=== PATIENT | male | born 1945 | race Caucasian/White ===

== ENCOUNTER → 2017-08-27 | Outpatient (CLI) | payer OTHER | LOC: CIMAGING 12:39 | PROVIDERS: ATTEND Internal Medicine | DX: R05 Cough (principal) | CPT/HCPCS: 71020-PO ==

== ENCOUNTER → 2017-09-02 | Outpatient (CLI) | payer OTHER | LOC: CIMAGING 13:55 | PROVIDERS: ATTEND Internal Medicine | DX: R04.2 Hemoptysis (principal); J98.09 Other diseases of bronchus, not elsewhere classified; Z87.891 Personal history of nicotine dependence; Z87.09 Personal history of other diseases of the respiratory system | CPT/HCPCS: 71250-PO ==

== ENCOUNTER → 2017-12-23 | Outpatient (CLI) | payer OTHER | LOC: CIMAGING 16:52 | PROVIDERS: ATTEND Internal Medicine | DX: M25.862 Other specified joint disorders, left knee (principal) | CPT/HCPCS: 73565-PO ==

== ENCOUNTER 2018-02-02 06:58 | Day surgery (SDC) | payer OTHER ==
[2018-02-02] MEDS ORDERED: FAMOTIDINE 20 MG TAB PO ONE (07:03)
[2018-02-02] MEDS ORDERED: MIDAZOLAM 2 MG/2 ML VIAL IVP ONE (07:03)
[2018-02-02] MEDS ORDERED: DIAZEPAM 5 MG TAB PO ONE (07:03)
[2018-02-02] MEDS ORDERED: diphenhydrAMINE 25 MG CAP PO ONE (07:03)
[2018-02-02] MEDS ORDERED: ASPIRIN EC 325 MG TAB PO ONE (07:03)
[2018-02-02] MEDS ORDERED: BENZOCAINE UNIT DOSE SPRAY HURRICAINE MM ONE (07:03)
[2018-02-02] MEDS ORDERED: NS 1,000 ML IV ONE (07:03)
[2018-02-02] MEDS ORDERED: fentaNYL 100 MCG/2 ML INJ IVP ONE (07:03)
--- NOTE | 2018-02-02 07:21 | CPEKG ---
Heart Rate: 63 RR Interval: 952 P-R Interval: 276 QRSD Interval: 98 QT Interval: 408 QTC Interval: 418 P Blanchard: 64 QRS Blanchard: 53 T Wave Blanchard: 55 EKG Severity - ABNORMAL ECG - EKG Impression: SINUS RHYTHM EKG Impression: FIRST DEGREE AV BLOCK Electronically Signed By: Kimi Santana 02-Feb-2018 16:34:17
[2018-02-02 07:43] LABS: PLATELET COUNT 162 10^3/uL (150-400)
[2018-02-02 07:52] LABS: INR 1.08 (0.83-1.16); PROTIME(PATIENT) 14.2 SEC (12.0-15.0)
[2018-02-02] MEDS ORDERED: ATROPINE SULFATE 1 MG/10 ML SYR ONE (08:44)
[2018-02-02] MEDS ORDERED: VERAPAMIL 5 MG/2 ML VIAL ONE (09:40)
[2018-02-02] MEDS ORDERED: LIDOCAINE 1% 300 MG/30 ML SDV ONE (09:40)
[2018-02-02] MEDS ORDERED: MIDAZOLAM 2 MG/2 ML VIAL ONE (09:40)
[2018-02-02] MEDS ORDERED: fentaNYL 100 MCG/2 ML INJ ONE (09:40)
[2018-02-02] MEDS ORDERED: HEPARIN 10,000 UNIT/10 ML MDV (1,000 UNIT/ML) ONE (09:41)
[2018-02-02] MEDS ORDERED: IOPAMIDOL (ISOVUE-370) 150 ML BTL IV ONE (09:41)
--- NOTE | 2018-02-02 09:44 | PDHPUP ---
History & Physical Update H&P update statement: This history and physical update is based on an assessment of the patient which was completed after admission or registration (within 24 hours), but prior to the surgery/procedure. H&P update: H&P reviewed & patient examined, no change in patient's condition since H&P completed
--- NOTE | 2018-02-02 09:47 | PDANEPAE ---
ANE History of Present Illness NASRIN ANE Past Medical History - Cardiovascular History Hx CHF / Valvular Disease: Yes - Pulmonary History Hx COPD: Yes Hx Asthma/Reactive Airway Disease: Yes Hx Sleep Apnea: No Pulmonary History Comment: chronic bronchitis - Endocrine History Hx Diabetes: No Hypothyroid: Yes ANE Review of Systems Review of Systems: SOB - Exercise capacity METS (RN): 4 METS ANE Patient History - Allergies Allergies/Adverse Reactions: No Known Allergies Allergy (Unverified 09/12/15 11:07) - Home Medications Home medications: home medication list seen and reviewed Home Medications: Levothyroxine [Synthroid 75 mcg (*)] 75 mcg PO DAILY06 09/12/15 [Last Taken 12/17] Atorvastatin Calcium [Lipitor 10 mg (*)] 10 mg PO HS 02/02/18 [Last Taken ] Fluticasone Nasal [Flonase Nasal [place] (RX)] 2 sprays NASAL DAILY PRN 02/02/18 [ Last Taken Unknown] Ipratropium/Albuterol [Duoneb (*)] 3 ml IH QID 02/02/18 [Last Taken 02/02/18] Omeprazole 20 mg PO DAILY PRN 02/02/18 [Last Taken Unknown] - Smoking Hx Smoking Status: Former smoker ANE Labs/Vital Signs - Labs Result Diagrams: 02/02/18 07:30 02/02/18 07:30 - Vital Signs Height: 167.64 cm Weight: 77.111 kg ANE Anesthesia Plan Total IV Anesthesia: Yes
--- NOTE | 2018-02-02 09:48 | POSTANESTH ---
Post Anesthetic Evaluation Cardiovascular Status: Similar to Pre-Op Cond Respiratory Status: Similar to Pre-op Cond. Level of Consciousness/Mental Status: Can Participate in Eval, Mildly Sleepy, Arousable Pain Control: Adequate, Prn Tx Ordered Nausea/Vomiting Control: Adequate, Prn Tx Ordered Complications Possibly Related to Anesthesia: None Noted
[2018-02-02] MEDS ORDERED: PROPOFOL 200 MG/20 ML VIAL ONE ×2 (09:49→10:19)
--- NOTE | 2018-02-02 10:16 | PDPROPOC ---
Sedation Plan of Care Sedation Plan of Care: vital signs stable, mental status noted, patient educated of risks, benefits, alternatives, patient can tolerate sedation ASA Classification: ASA 2 Planned drugs: fentanyl, midazolam Mallampati Score: Class 1 Mallampati Reference Image: Patient passed 3-3-2 rule?: Yes
[2018-02-02] MEDS ORDERED: DEXAMETHASONE 4 MG/ML VIAL IVP PRN (10:27)
[2018-02-02] MEDS ORDERED: fentaNYL 100 MCG/2 ML INJ IVP PRN (10:27)
[2018-02-02] MEDS ORDERED: NALOXONE HCL 0.4 MG/ML INJ IVP PRN (10:27)
[2018-02-02] MEDS ORDERED: ONDANSETRON 4 MG/2 ML VIAL IVP PRN (10:27)
--- NOTE | 2018-02-02 11:04 | PDDXCAT ---
Diagnostic Cath Note - . Date: 02/02/18 Sld Inclusion Teacher: Giorgio Indication: other (Severe mitral regurgitation, preoperative for planned mitral valve repair.) - Procedure Access: right groin Procedure: left heart catheterization, coronary angiography, left ventriculogram , right heart catheterization - Materials Left Heart Cath size: 5F Left Heart Cath materials: JL4.0, JR4.0, pigtail Right Heart Cath size: 7F Right Heart Cath materials: PWP catheter - Findings-Left Heart Catheterization LM: Large caliber vessel. Bifurcates into the left anterior descending and circumflex. Angiographically free of disease. LAD: Large caliber transapical vessel with 2 small diagonal branches. Minimal luminal irregularities with no obstructions. LCX: Dominant. Moderate caliber. 2 posterolateral branches, single obtuse marginal and the PDA were identified. Minimal luminal irregularities with no obstructive lesions. RCA: Small caliber and non dominant. Mid occluded. EDP: 20 mmHg. LVEF: 60-65%. Wall motion: Normal wall motion. - Findings-Right Heart Catheterization RA: 11 mmHg. RV: 45/7/12 mmHg. PA: 37/22/29 mmHg. PAOP: 20 mmHg. No evidence of large V-waves. AO: 147/66/98 mmHg. CO: 5.18 liters/minute. CI: 2.77 liters/minute per meter squared. Complications: None. Estimated blood loss: <50ml Closure method: Angioseal Assessment: 1. CAD characterized by a mid occluded non dominant right coronary artery and luminal irregularities in the remainder of the coronary tree. 2. Preserved left ventricular systolic function with an ejection fraction of 60-65 % with normal wall motion. 3. Evidence of 3+ mitral regurgitation by left ventriculography. 4. Elevated end-diastolic pressure and pulmonary capillary wedge pressure with mildly elevated pulmonary pressures. 5. Known posterior leaflet mitral valve prolapse with evidence of severe mitral regurgitation by echocardiography and moderate aortic regurgitation. Plan: The patient will be considered for mitral valve repair and aortic valve replacement. Intervention: None.
[2018-02-02] MEDS ORDERED: ATROPINE SULFATE 1 MG/10 ML SYR IVP PRN (11:08)
[2018-02-02] MEDS ORDERED: NITROGLYCERIN 0.4 MG BTL SL PRN (11:08)
--- NOTE | 2018-02-02 14:28 | GCON ---
[f rep st] CONSULTATION DATE OF CONSULTATION: 02/02/2018 Patient is seen at the request of Dr. Carrillo with the patient's permission. IMPRESSION: 1. 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 2. Arteriosclerotic heart disease with chronically occluded right coronary artery. 3. Mild to moderate aortic insufficiency. RECOMMENDATIONS: This gentleman should undergo mitral valve repair with a 95% certainty of repair an d 5% risk of replacement. Risks and alternatives were reviewed at length with the patient. The expe cted outcomes, potential for valve failure down the road, and associated complications of that surger y including bleeding, infection, stroke, heart attack, and were reviewed. Surgical risk is les s than 2%. His coronary artery is small and nondominant and chronically occluded. Therefore, should not be grafted. 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 MEDICATIONS: Atorvastatin, fluticasone 50 mcg, ipratropium/albuterol, levothyroxine, omeprazole, and ProAir. ALLERGIES: He has no known allergies. FAMILY HISTORY: Noncontributory. REVIEW OF SYSTEMS: Unremarkable except for chief complaint. SOCIAL HISTORY: He has a 40 pack-year history of cigarette abuse, stopping in 1989. 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 REVIEW OF SYSTEMS: Except for chief complaint of shortness of breath on exertion, he denies complain ts. DIAGNOSTICS: Echo, as noted, reveals a PA pressure of 32 with moderate to severe, more likely severe , mitral regurgitation, anteriorly directed. Ejection fraction was preserved at 66. He has mild TR and moderate AI. Cath as stated. PHYSICAL EXAMINATION: GENERAL: This is a well-developed gentleman, no apparent distress. HEART: R egular rate and rhythm with murmur of mitral regurgitation. LUNGS: Clear. ABDOMEN: Soft, nontende r. Bowel sounds are active. RECTAL AND GENITAL: Deferred. NEUROLOGIC: He is grossly intact. Anh r and sensory are intact to the lower extremities. He does have some muscle wasting in both hands wh ich he attributes to his cervical disk surgery which was preceded by neuropathy and muscle loss. Please see cath report for details. /[id number]/MODL
[2018-02-02 16:26] VITALS: BP 146/65
--- NOTE | 2018-02-02 16:33 | ECHO ---
[email or web address] [address] [address] Main: [phone] Fax: Transesophageal Echocardiography Name: FRANCESCA DSOUZA MR#: [id number] Study Date: 02/02/2018 Study Time: 08:53 AM Date of : 1945 Age: 73 year(s) Height: 167.6 cm (66 in.) Weight: 77.11 kg (170 lb.) BSA: 1.87 m2 Gender: Male Examination: NASRIN Indication: Eval mitral valve Image Quality: Contrast: Requested by: Ketan Mccoy Heart Rate: Rhythm: BP: 131 mmHg/59 mmHg Procedure Staff Design Painter: Vianney Worthy RDCS Reading Physician: Jose R Alvares MD Requesting Provider: Jose R Alvares MD NASRIN Exam Details Conclusions: The patient was in sinus rhythm at the time of the study. Normal left ventricular size and systolic function. LVEF estimated at 55-60% with normal wall motion. Trileaflet aortic valve with mild sclerosis. Moderate central aortic insufficiency. Myxomatous appearing mitral valve. There appears to be prolapse of the P1 segment. This is associated with severe, eccentric mitral regurgitation. Normal-appearing tricuspid valve. Mild tricuspid regurgitation. The pulmonic valve was not visualized. Intact interatrial septum on color flow Doppler. Agitated saline contrast study was not performed. No evidence of pericardial effusion. Measurements: Chambers Valvular Assessment AV/MV Valvular Assessment TV/PV Normal Normal Normal Name Value Range Name Value Range Name Value Range TR Vmax: 3.34 mm/s ( - ) TR PGmax: 45 mmHg ( - ) syst. PAP: 50 mmHg ( - ) Additional Measurements: Valvular Assessment TV/PV Name Value CVP (est.): 5 mmHg Patient: FRANCESCA DSOUZA Study Date: 02/02/2018 Page 1 of 2 08:53 AM Findings: Left Ventricle: Normal global systolic LV function. Mitral Valve: There is posterior mitral leaflet prolapse. There is a severe eccentric jet of mitral regurgitation.. Aortic Valve: The aortic valve is tri-leaflet. Moderate aortic valve regurgitation is present. Tricuspid Valve: Mild tricuspid regurgitation is present. The pulmonary artery pressure is mildly increased. RVSP is 50mmHG.. Exam Comments: Technically difficult NASRIN with pt coughing and amount of secretions.. l1n (No Signature Object) Patient: FRANCESCA DSOUZA Study Date: 02/02/2018 Page 2 of 2 08:53 AM [id number]
== END 2018-02-02 16:28 | disposition home or self-care (01) ==
LOC: FCATH 06:58
PROVIDERS: ATTEND Internal Medicine Cardiovascular Disease
PROC: B2161ZZ Fluoroscopy of Right and Left Heart using Low Osmolar Contrast (ICD-10-PCS; principal; 2018-02-02)
PROC: 4A023N8 Measurement of Cardiac Sampling and Pressure, Bilateral, Percutaneous Approach (ICD-10-PCS; principal; 2018-02-02)
PROC: B2111ZZ Fluoroscopy of Multiple Coronary Arteries using Low Osmolar Contrast (ICD-10-PCS; principal; 2018-02-02)
DX: I25.10 Atherosclerotic heart disease of native coronary artery without angina pectoris (principal); I34.0 Nonrheumatic mitral (valve) insufficiency; E03.9 Hypothyroidism, unspecified; E78.5 Hyperlipidemia, unspecified
CPT/HCPCS: C1760; J0461; J1644; J2250; J2704; J3010; Q9967

== ENCOUNTER 2018-02-25 06:12 | Inpatient (IN) | payer OTHER ==
[~2018-02-25 06:12] MED LIST: AMINOCAPROIC ACID 5 GM/20 ML VIAL IV ONE; INSULIN REGULAR HUMAN 100 UNIT in NS 100 ML IV ONE; MANNITOL 25% 12.5 GM/50 ML VIAL IVP ONE; NOREPINEPHRINE BITARTRATE 16 MG in NS 250 ML IV ONE; PHENYLEPHRINE HCL 50 MG in NS 250 ML IV ONE; SODIUM BICARBONATE 20 MEQ, LIDOCAINE 1% 10 ML in NORMOSOL-R 1,000 ML MISC ONE
[2018-02-25] MEDS ORDERED: niCARdipine/NACL 200 ML IV ONE (06:37)
[2018-02-25] MEDS ORDERED: MUPIROCIN 2% 22 GM OINT NS ONE (06:37)
[2018-02-25] MEDS ORDERED: ceFAZolin 2 GM/DEXTROSE 100 ML IV ONE (06:37)
[2018-02-25] MEDS ORDERED: CITRATE DEXTROSE SOLN 500 ML BAG MISC ONE (06:37)
[2018-02-25] MEDS ORDERED: LR 1,000 ML IV ONE (06:40)
[2018-02-25] MEDS ORDERED: CALCIUM CHLORIDE 1 GM/10 ML INJ ONE (08:37)
[2018-02-25] MEDS ORDERED: ALBUMIN 5% 250 ML BOTTLE IV ONE ×2 (08:37→13:42)
[2018-02-25] MEDS ORDERED: PROTAMINE SULFATE 50 MG/5 ML VIAL IVP ONE (08:37)
[2018-02-25] MEDS ORDERED: MILRINONE/DEXTROSE/100 ML BAG IV ONE (08:37)
[2018-02-25] MEDS ORDERED: LIDOCAINE 2% 100 MG/5 ML SYR ONE (08:38)
[2018-02-25] MEDS ORDERED: NA BICARBONATE 50 MEQ/50 ML VIAL ONE (08:38)
[2018-02-25] MEDS ORDERED: niCARdipine/NACL/200 ML BAG IV ONE (08:39)
[2018-02-25] MEDS ORDERED: CITRATE DEXTROSE SOLN 500 ML BAG ONE (08:39)
[2018-02-25] MEDS ORDERED: HEPARIN 10,000 UNIT/10 ML MDV (1,000 UNIT/ML) ONE (08:39)
[2018-02-25] MEDS ORDERED: DOPamine/DEXTROSE 400 MG/250 ML BAG IV ONE (08:39)
[2018-02-25] MEDS ORDERED: ADENOSINE 6 MG/2 ML VIAL ONE (08:40)
[2018-02-25] MEDS ORDERED: MAGNESIUM SULFATE 1 GM/2 ML VIAL ONE (08:40)
[2018-02-25] MEDS ORDERED: ceFAZolin 1 GM VIAL ONE (08:40)
[2018-02-25] MEDS ORDERED: AMIODARONE HCL 150 MG/3 ML VIAL ONE (08:40)
[2018-02-25] MEDS ORDERED: NITROGLYCERIN/D5W 50 MG/250 ML BOTTLE IV ONE (08:40)
[2018-02-25] MEDS ORDERED: methylPREDNISolone SOD SUCC 1 GM/8 ML VIAL ONE (08:40)
[2018-02-25] MEDS ORDERED: MUPIROCIN 2% 22 GM OINT ONE (08:46)
[2018-02-25] MEDS ORDERED: MIDAZOLAM 2 MG/2 ML VIAL IVP ONE (11:13)
--- NOTE | 2018-02-25 11:13 | PDANEPAE ---
ANE History of Present Illness here for MVR ANE Past Medical History - Cardiovascular History Hx Hypertension: Yes Hx Arrhythmias: No Hx Chest Pain: No Hx Coronary Artery / Peripheral Vascular Disease: No Hx CHF / Valvular Disease: Yes Hx Palpitations: No Cardiovascular History Comment: ELEVATED LIPIDS - Pulmonary History Hx COPD: Yes Hx Asthma/Reactive Airway Disease: No Hx Recent Upper Respiratory Infection: No Hx Oxygen in Use at Home: No Hx Sleep Apnea: No Sleep Apnea Screening Result - Last Documented: Positive Pulmonary History Comment: 08/18 bronchitis. PNEUMONIA 2012. HAS HAD INHALER ONLY PAST MONTH - Neurologic History Hx Cerebrovascular Accident: No Hx Seizures: Yes Hx Dementia: No Neurologic History Comment: POST HEAD INJURY 1967 - Endocrine History Hx Diabetes: No Endocrine History Comment: HYPOTHYROID - Renal History Hx Renal Disorders: No - Liver History Hx Hepatic Disorders: No - Neurological & Psychiatric Hx Hx Neurological and Psychiatric Disorders: No - Cancer History Hx Cancer: No - Congenital Disorder History Hx Congenital Disorders: No - GI History Hx Gastrointestinal Disorders: Yes Gastrointestinal History Comment: OTC USED WHEN EATS SPICEY FOODS ABOUT EVERY 4 MONTHS - Other Health History Other Health History: BAD LEFT KNEE - Chronic Pain History Chronic Pain: Yes (LT KNEE) - Surgical History Prior Surgeries: JAKOB CATARACTS. HEAD INJURY SPINAL FLUID LEAKING. CERVICAL FUSION. LT KNEE SCOPE X2 ANE Review of Systems Review of systems is: negative Review of Systems: - Exercise capacity Exercise capacity: <4 METS METS (RN): 3 METS ANE Patient History - Allergies Allergies/Adverse Reactions: No Known Allergies Allergy (Unverified 09/12/15 11:07) - Home Medications Home medications: home medication list seen and reviewed Home Medications: Levothyroxine [Synthroid 75 mcg (*)] 75 mcg PO DAILY06 09/12/15 [Last Taken 12/17] Atorvastatin Calcium [Lipitor 10 mg (*)] 10 mg PO HS 02/02/18 [Last Taken ] Albuterol [Ventolin Hfa Inhaler] 2 puffs IH Q4 PRN 02/16/18 [Last Taken Unknown] - NPO status NPO Since - Liquids (Date): 02/25/18 NPO Since - Liquids (Time): 04:20 NPO Since - Solids (Date): 02/24/18 NPO Since - Solids (Time): 19:00 - Smoking Hx Smoking Status: Former smoker - Family Anes Hx Family Hx Anesthesia Complications: NEG ANE Labs/Vital Signs - Vital Signs Blood Pressure: 145/63 Heart Rate: 62 Respiratory Rate: 18 O2 Sat (%): 96 Height: 168.91 cm Weight: 77.111 kg ANE Physical Exam - Airway Neck exam: FROM Mallampati Score: Class 1 - Pulmonary Pulmonary: no respiratory distress - Cardiovascular Cardiovascular: regular rate and rhythym - ASA Status ASA Status: III ANE Anesthesia Plan Anesthesia Plan: general endotracheal anesthesia Lines/Monitors: arterial line, central line, NASRIN
[2018-02-25] MEDS ORDERED: MIDAZOLAM 2 MG/2 ML VIAL ONE (11:19)
[2018-02-25] MEDS ORDERED: fentaNYL 250 MCG/5 ML INJ ONE ×2 (11:21→12:02)
[2018-02-25] MEDS ORDERED: PROPOFOL/EMULSION 500 MG/50 ML BOTTLE IV ONE (11:21)
[2018-02-25] MEDS ORDERED: ROCURONIUM 100 MG/10 ML VIAL ONE (11:21)
[2018-02-25] MEDS ORDERED: PHENYLEPHRINE HCL 100 MCG/ML SYR ONE (11:25)
[2018-02-25] MEDS ORDERED: ePHEDrine SULFATE 25 MG/5 ML SYR ONE (11:25)
[2018-02-25] MEDS ORDERED: NITROGLYCERIN 50 MG/10 ML SDV IV ONE (12:01)
[2018-02-25] MEDS ORDERED: MINERAL OIL 10 ML VIAL ONE (14:32)
[2018-02-25] MEDS ORDERED: POTASSIUM Cl (KCl) 50 ML IV PRN (15:29)
[2018-02-25] MEDS ORDERED: D50W 25 GM/50 ML SYR IVP PRN (15:29)
[2018-02-25] MEDS ORDERED: CEPACOL LOZENGE PO PRN (15:29)
[2018-02-25] MEDS ORDERED: BISACODYL 10 MG SUPP PR PRN (15:29)
[2018-02-25] MEDS ORDERED: MAGNESIUM HYDROXIDE 30 ML UDCUP PO PRN (15:29)
[2018-02-25] MEDS ORDERED: ONDANSETRON DISINTEGRATING 4 MG TAB PO PRN (15:29)
[2018-02-25] MEDS ORDERED: MEPERIDINE 25 MG/0.5 ML AMP IVP PRN (15:29)
[2018-02-25] MEDS ORDERED: ACETAMINOPHEN 650 MG SUPP PR PRN (15:29)
[2018-02-25] MEDS ORDERED: POLYETHYLENE GLYCOL 3350 17 GM PKT PO PRN (15:29)
[2018-02-25] MEDS ORDERED: METOCLOPRAMIDE 10 MG/2 ML VIAL IVP PRN (15:29)
[2018-02-25] MEDS ORDERED: LACTULOSE 20 GM/30 ML UDCUP PO PRN (15:29)
[2018-02-25] MEDS ORDERED: ONDANSETRON 4 MG/2 ML VIAL IVP PRN (15:29)
[2018-02-25] MEDS ORDERED: SODIUM CL NASAL 45 ML BTL EACHNARE PRN (15:29)
[2018-02-25] MEDS ORDERED: PANTOPRAZOLE SODIUM 40 MG VIAL IVP ONE (15:29)
[2018-02-25] MEDS ORDERED: NS 1,000 ML IV SCH (15:30)
[2018-02-25] MEDS ORDERED: INSULIN REGULAR HUMAN 100 UNIT in NS 100 ML IV SCH (15:30)
[2018-02-25] MEDS ORDERED: niCARdipine/NACL 200 ML IV SCH (15:30)
[2018-02-25] MEDS: ALBUMIN 5% 250 ML IV PRN ×3 (16:05→21:59)
--- NOTE | 2018-02-25 16:13 | GOP ---
[f rep st] OPERATIVE REPORT DATE OF OPERATION: 02/25/2018 SURGEON: Stefan Cervantes DO FRAME REPAIRER: Diaz Hsu PA-C. ANESTHESIA: Drake Alvarado MD. PREOPERATIVE DIAGNOSIS: 1. Severe mitral insufficiency. 2. Moderate aortic insufficiency. 3. Coronary artery disease. POSTOPERATIVE DIAGNOSIS: 1. Severe mitral insufficiency. 2. Moderate aortic insufficiency. 3. Coronary artery disease. PROCEDURE PERFORMED: 1. Chordal-sparing mitral valve replacement with a #29 Magna bioprosthesis. 2. Aortic valve replacement with a #23 Inspiris aortic bioprosthesis. 3. AtriClip to the left atrial appendage. FINDINGS: Patient was noted to have symptomatic aortic and mitral insufficiency. Had preserved LV f unction. He was evaluated and found to have complete occlusion of the right coronary artery with col lateral flow. No other significant obstructive disease. DESCRIPTION OF PROCEDURE: He was consented for surgery, brought to the operating room, intubated. M onitoring lines were placed. He was prepped and draped in sterile classical manner. Sternotomy was performed. The patient was heparinized. His aorta was without plaque or calcification. He was johanna ulated in the standard fashion with bicaval cannulas, retrograde and antegrade cardioplegia. Cardiop ulmonary bypass was begun. We then placed a 35 mm AtriClip across the base of the left atrial append age without difficulty. We then arrested the heart with intermittent antegrade cardioplegia, retrogr luna cardioplegia, topical hypothermia, and systemic cooling. The left atrium was opened through the right superior pulmonary vein. A Ant retractor was place d. We then spent some time evaluating the mitral valve. He actually had ruptured chordae to P3 and calcification of A3 leaflet and then P2 rupture as well with some calcification in P1. This was a s mall fibroelastic valve, rather small and with marginal tissue. For that reason, I felt a replacemen t was more appropriate in this gentleman given his age and the fact that we could do chordal sparing with good LV function. We detached the anterior leaflet, incorporated into placing a 29 mm Magna bio prosthesis with interrupted 2-0 Tycron pledgeted mattress sutures. We then proceeded with exposing t he aortic valve. It was a trileaflet valve without calcification. There was thickening and retracti on of the central portions of the right coronary and left coronary leaflets. I felt that regurgitati on was likely more significant than he would tolerate. With that reason, it was excised, and a 23 mm Inspiris valve was placed in a supra-annular position with interrupted 3-0 Tycron pledgeted mattress sutures. Aortotomy was closed in standard fashion. The cross-clamp was removed with suction on the ascending aortic vent in Trendelenburg. When no further air was identified, he was easily weaned fro m bypass. The heparin was reversed with protamine. The cannula was removed and oversewn. 4 pacing wires, 2 mediastinal drains were placed. No pleural drains were placed. Chest tubes were reapproxim ated in standard fashion. The patient was returned to ICU in stable condition. /[id number]/MODL
[2018-02-25] MEDS ORDERED: NOREPINEPHRINE BITARTRATE 16 MG in NS 250 ML IV SCH (17:30)
[2018-02-25] MEDS: fentaNYL 100 MCG/2 ML INJ IVP PRN ×3 (17:55→20:27)
[2018-02-25] MEDS ORDERED: ALBUMIN 5% 250 ML IV ONE (18:00)
[2018-02-25] MEDS: KETOROLAC 15 MG/1 ML SDV IVP PRN (18:35)
[2018-02-25] MEDS: MUPIROCIN 2% 22 GM OINT NS SCH (21:04)
[2018-02-25] MEDS: SENNOSIDES/DOCUSATE SODIUM TAB PO SCH (21:04)
[2018-02-25] MEDS: HYDROCODONE/APAP 5/325 TAB PO PRN (21:56)
[2018-02-25] MEDS: ceFAZolin 2 GM/DEXTROSE 100 ML IV SCH (21:58)
[2018-02-26] MEDS: KETOROLAC 15 MG/1 ML SDV IVP PRN (01:14)
[2018-02-26 05:22] LABS: PLATELET COUNT 66 10^3/uL (150-400)
[2018-02-26] MEDS: LEVOTHYROXINE 75 MCG TAB PO SCH (05:28)
[2018-02-26] MEDS: HYDROCODONE/APAP 5/325 TAB PO PRN ×2 (05:28→09:02)
[2018-02-26] MEDS: ceFAZolin 2 GM/DEXTROSE 100 ML IV SCH ×3 (05:29→22:32)
[2018-02-26 05:44] LABS: INR 1.42 (0.83-1.16); PROTIME(PATIENT) 17.5 SEC (12.0-15.0)
--- NOTE | 2018-02-26 06:36 | SOAPPROG ---
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 Not amenable to repair. Replaced with tissue valve. Antithrombotic prophylaxis with Coumadin x 3 mo, target INR 2-3. Moderate AI - Replaced with tissue valve. Antithrombotic prophylaxis as per MV. LVDD - preop LVEDP 20. IVF, low dose levo, and overdrive Apacing overnoc for optimized hemodynamics. Renal fx remains stable. Care with preload. CAD w preserved LV systolic fx - GLAZE GRINDER of nondominant RCA. Secondary prevention with ASA, BB and statin when appropriate. Acute expected blood loss anemia with thrombocytopenia and mild coagulopathy - Stable. No transfusions required. No evidence active bleeding. Care with VTE prophylaxis while plts depressed. Plan: Routine POD#1 orders re drains, orals and mobility. Reduce Apacing to backup of 60. Transfuse 1u PRBC. NS bolus prn CVP persistently < 12. Wean levo to MAP > 65. Possible tx to PCU later today. 02/26/18 06:31 Subjective: Tired and sore Objective: Vital Signs Temp Pulse Resp BP Pulse Ox 37.1 C 80 13 118/52 L 99 02/26/18 04:00 02/26/18 05:00 02/26/18 05:00 02/26/18 05:00 02/26/18 05:00 Laboratory Results 02/26/18 05:10 02/26/18 05:10 02/25/18 02/26/18 02/27/18 05:59 05:59 05:59 Intake Total 3710 Output Total 1518 Balance 2192 PT 17.5 SEC (12.0-15.0) H 02/26/18 05:10 INR 1.42 (0.83-1.16) H 02/26/18 05:10 IVF at 100 ml/h, Levo at 2.5 mcg for MAP > 65. Overdrive atrial pacing for SBP boost. Underlying rhythm sinus 70s. Min suppl O2 req. 3.7 kg positive fluid balance. Adequate UOP. Mod CTOP, quality thinning. CXR -> No PTX, no pulm vasc congestion, tiny rt pl eff Labs as expected. INR sl elev. No further drop in plt count. Physical Exam - Physical Exam General Appearance: alert, no apparent distress Respiratory: crackles (bases), other (blakes x 2 y-d to pleurovac, serosang drainage, no air leak) Cardiac/Chest: regular rate, rhythm, other (Sternotomy CDI. A&V wires intact) Abdomen: non-tender, soft Skin: warm/dry Extremities: other (no visible dependent edema) ICD10 Worksheet Patient Problems: Problems Problem Status Onset Acute blood loss as cause of postoperative anemia Acute Mitral and aortic valve regurgitation Acute S/P aortic valve and mitral valve replacement Acute
[2018-02-26] MEDS: HEPARIN 5,000 UNIT/0.5 ML INJ SC SCH ×3 (06:51→19:36)
[2018-02-26] MEDS: SENNOSIDES/DOCUSATE SODIUM TAB PO SCH ×2 (09:01→22:34)
[2018-02-26] MEDS: MUPIROCIN 2% 22 GM OINT NS SCH ×2 (09:01→22:34)
[2018-02-26] MEDS: PANTOPRAZOLE SODIUM 40 MG TAB PO SCH (09:02)
[2018-02-26] MEDS: ASPIRIN 81 MG CHEWABLE TAB PO SCH (09:02)
--- NOTE | 2018-02-26 11:23 | ASMTCMCOM ---
CM Note CM Note Notes: Patient is POD #1 AVR/MVR and doing well. Initial PT eval recommends SNF. I spoke with patient and he is amenable to SNF. He lives alone. He requested a referral to [facility], which I sent. Case Management will follow. Date Signed: 02/26/2018 11:23 AM Electronically Signed By:Lesly Reza RN
--- NOTE | 2018-02-26 11:42 | PDMN ---
Medical Necessity Medical necessity: IP only surgery; cpt 15759 Cardiac Valve Replacement/Repair ( MVR/AVR)
[2018-02-26] MEDS: oxyCODONE IR 5 MG TAB PO PRN ×3 (12:58→22:31)
--- NOTE | 2018-02-26 14:54 | ASMTLACE ---
TRISH Acuity / Level of Answers: Yes Care: Did the patient have an inpatient admission? Comorbidities - select Answers: Chronic pulmonary disease all that apply Congestive heart failure Opioid dependence / Chronic pain Other Notes: HTN; Hx of seizures # of Emergency department Answers: 0 visits in the last 6 months Score: 12 Date Signed: 02/26/2018 02:54 PM Electronically Signed By:Flor Nava
[2018-02-26] MEDS ORDERED: KETOROLAC 15 MG/1 ML SDV IVP SCH (18:30)
[2018-02-27] MEDS: oxyCODONE IR 5 MG TAB PO PRN ×3 (02:26→14:21)
[2018-02-27 04:45] LABS: INR 1.36 (0.83-1.16); PROTIME(PATIENT) 16.9 SEC (12.0-15.0)
[2018-02-27] MEDS: ceFAZolin 2 GM/DEXTROSE 100 ML IV SCH (05:36)
[2018-02-27] MEDS: LEVOTHYROXINE 75 MCG TAB PO SCH (05:36)
[2018-02-27] MEDS: HEPARIN 5,000 UNIT/0.5 ML INJ SC SCH (05:43)
--- NOTE | 2018-02-27 06:49 | SOAPPROG ---
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 Not amenable to repair. Replaced with tissue valve. Antithrombotic prophylaxis with Coumadin x 3 mo, target INR 2-3. Moderate AI - Replaced with tissue valve. Antithrombotic prophylaxis as per MV. LVDD - preop LVEDP 20. IVF, low dose levo, and overdrive Apacing early postop for optimized hemodynamics. Moderate volume overload well tolerated. Renal fx remains stable. Care with preload. CAD w preserved LV systolic fx - INSTALLATION COORDINATOR of nondominant RCA. Secondary prevention with ASA, BB and statin when appropriate. Acute expected blood loss anemia with thrombocytopenia and mild coagulopathy - Stable. No transfusions required. No evidence active bleeding. Care with VTE prophylaxis while plts depressed. Plan: Remove rere. Cont Apacing at 80. Cont inc activity as tolerated. Consider removal chest tubes later today. Start coumadin. 2.5 mg today. Tx to PCU. 02/27/18 06:48 Subjective: Doing ok. OOB and short walk without dizziness. Objective: Vital Signs Temp Pulse Resp BP Pulse Ox 36.5 C 80 16 115/51 L 97 02/26/18 16:00 02/27/18 06:00 02/27/18 06:00 02/27/18 06:00 02/27/18 06:00 Laboratory Results 02/27/18 04:25 02/27/18 04:25 02/26/18 02/27/18 02/28/18 05:59 05:59 05:59 Intake Total 4010 2336 Output Total 1518 855 Balance 2492 1481 PT 16.9 SEC (12.0-15.0) H 02/27/18 04:25 INR 1.36 (0.83-1.16) H 02/27/18 04:25 Off levo without drop in SBP or bump in Cr. Underlying rhythm junct/SB. Improved SBP Apaced. Borderline suppl O2 req. Positive fluid balance. +3 kg overall. CTOP approaching removal criteria. Platelet count down slightly. Physical Exam - Physical Exam General Appearance: alert, no apparent distress Respiratory: crackles (bases), other (blakes x 2 to bulb suction, serosang drainage) Cardiac/Chest: regular rate, rhythm, other (Sternotomy CDI. A&V wires intact) Abdomen: non-tender, soft Skin: warm/dry Extremities: swelling (trace - 1+ dependent) ICD10 Worksheet Patient Problems: Problems Problem Status Onset Acute blood loss as cause of postoperative anemia Acute Mitral and aortic valve regurgitation Acute S/P aortic valve and mitral valve replacement Acute
[2018-02-27] MEDS: SENNOSIDES/DOCUSATE SODIUM TAB PO SCH ×2 (08:19→21:14)
[2018-02-27] MEDS: PANTOPRAZOLE SODIUM 40 MG TAB PO SCH (08:20)
[2018-02-27] MEDS: ASPIRIN 81 MG CHEWABLE TAB PO SCH (08:20)
[2018-02-27] MEDS: MUPIROCIN 2% 22 GM OINT NS SCH (08:25)
[2018-02-27] MEDS ORDERED: FUROSEMIDE 20 MG/2 ML VIAL IVP ONE (09:00)
[2018-02-27] MEDS: traMADol 50 MG TAB PO PRN (15:00)
[2018-02-27] MEDS ORDERED: WARFARIN SODIUM 2.5 MG TAB PO ONE (16:00)
--- NOTE | 2018-02-27 16:21 | ASMTCMCOM ---
CM Note CM Note Notes: Chart reviewed. Patient transferred from ICU s/p MVR and AVR. Per PT initial evaluation recommending SNF. Still in early postoperative period. CM to follow. NTBD. Plan: TBD Date Signed: 02/27/2018 04:21 PM Electronically Signed By:Stephanie Salinas RN
[2018-02-27] MEDS: ACETAMINOPHEN 325 MG TAB PO PRN (21:14)
[2018-02-28] MEDS: LEVOTHYROXINE 75 MCG TAB PO SCH (06:14)
[2018-02-28] MEDS: ACETAMINOPHEN 325 MG TAB PO PRN ×2 (06:14→11:21)
[2018-02-28 06:48] LABS: INR 1.39 (0.83-1.16); PROTIME(PATIENT) 17.2 SEC (12.0-15.0)
[2018-02-28 10:06] LABS: PLATELET COUNT 45 10^3/uL (150-400)
[2018-02-28] MEDS: SENNOSIDES/DOCUSATE SODIUM TAB PO SCH ×2 (10:19→23:02)
[2018-02-28] MEDS: PANTOPRAZOLE SODIUM 40 MG TAB PO SCH (10:19)
[2018-02-28] MEDS: ASPIRIN 81 MG CHEWABLE TAB PO SCH (10:20)
--- NOTE | 2018-02-28 11:30 | SOAPPROG ---
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 Not amenable to repair. Replaced with tissue valve. Antithrombotic prophylaxis with Coumadin x 3 mo, target INR 2-3. Moderate AI - Replaced with tissue valve. Antithrombotic prophylaxis as per MV. LVDD - preop LVEDP 20. IVF, low dose levo, and overdrive Apacing early postop for optimized hemodynamics. Moderate volume overload well tolerated. Renal fx remains stable. 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 On ASA. Will start statin. BB when appropriate. Currently still being Apaced with underlying junctional rhythm in the 60's. Acute expected blood loss anemia with thrombocytopenia and mild coagulopathy - Worsening. Plt count 56k (66k), H&H 8.9/25.4. No transfusions required. No evidence active bleeding. Care with VTE prophylaxis while plts depressed. Urinary retention- Required straight cath this am. Hypothyroidism- No issues. On Synthroid. Plan: Cont Apacing. Will remove pleural chest tube today. Coumadin 5mg today. Echo ordered for Friday. Iron BID Check HIT Flomax initiated. Lasix 40po daily/Kdur 20mEq daily Subjective: Patient reports good pain control. Reports having hx of slow urinary stream. Objective: Vital Signs Temp Pulse Resp BP Pulse Ox 36.9 C 84 15 104/68 98 02/28/18 07:36 02/28/18 07:36 02/28/18 07:36 02/28/18 07:36 02/28/18 07:36 Laboratory Results 02/28/18 09:22 02/28/18 04:30 02/27/18 02/28/18 03/01/18 05:59 05:59 05:59 Intake Total 2336 650 250 Output Total 855 1585 Balance 1481 -935 250 PT 17.2 SEC (12.0-15.0) H 02/28/18 04:30 INR 1.39 (0.83-1.16) H 02/28/18 04:30 Physical Exam - Physical Exam General Appearance: WD/WN, alert, no apparent distress Neck: supple Respiratory: lungs clear, other (No wheezing, rhonchi, rales. ) Cardiac/Chest: regular rate, rhythm, other (No murmurs, rubs, gallops. Sternum stable. Sternotomy c/d/i. ) Abdomen: normal bowel sounds, non-tender, soft Skin: normal color, warm/dry Extremities: other (warm, 1+ lower extremity pitting edema) Neuro/Psych: alert, normal mood/affect, oriented x 3 ICD10 Worksheet Patient Problems: Problems Problem Status Onset Acute blood loss as cause of postoperative anemia Acute Mitral and aortic valve regurgitation Acute S/P aortic valve and mitral valve replacement Acute
[2018-02-28] MEDS ORDERED: BISACODYL 10 MG SUPP PR ONE (11:32)
[2018-02-28] MEDS: POTASSIUM CL 20 MEQ TAB PO SCH (12:35)
[2018-02-28] MEDS: FERROUS SULFATE 325 MG TAB PO SCH ×2 (12:35→20:39)
[2018-02-28] MEDS: TAMSULOSIN HCL 0.4 MG CAP PO SCH (12:35)
[2018-02-28] MEDS: FUROSEMIDE 40 MG TAB PO SCH (12:36)
--- NOTE | 2018-02-28 15:03 | ASMTCMCOM ---
CM Note CM Note Notes: Pt has been acceptd by [facility]. DC unknown. CM to follow. Date Signed: 02/28/2018 03:03 PM Electronically Signed By:Angi Bettencourt LCSW
[2018-02-28] MEDS ORDERED: WARFARIN SODIUM 5 MG TAB PO ONE (16:00)
[2018-02-28] MEDS: HYDROCODONE/APAP 5/325 TAB PO PRN ×2 (18:05→23:07)
[2018-02-28] MEDS: traMADol 50 MG TAB PO PRN (20:44)
[2018-03-01] MEDS: traMADol 50 MG TAB PO PRN (06:09)
[2018-03-01] MEDS: LEVOTHYROXINE 75 MCG TAB PO SCH (06:09)
[2018-03-01 06:35] LABS: INR 2.05 (0.83-1.16); PROTIME(PATIENT) 23.2 SEC (12.0-15.0)
[2018-03-01] MEDS: TAMSULOSIN HCL 0.4 MG CAP PO SCH (09:26)
[2018-03-01] MEDS: PANTOPRAZOLE SODIUM 40 MG TAB PO SCH (09:26)
[2018-03-01] MEDS: FERROUS SULFATE 325 MG TAB PO SCH ×2 (09:26→20:19)
[2018-03-01] MEDS: ASPIRIN 81 MG CHEWABLE TAB PO SCH (09:26)
[2018-03-01] MEDS: POTASSIUM CL 20 MEQ TAB PO SCH (09:26)
[2018-03-01] MEDS: SENNOSIDES/DOCUSATE SODIUM TAB PO SCH ×2 (09:26→20:19)
[2018-03-01] MEDS: ATORVASTATIN CALCIUM 10 MG TAB PO SCH (09:26)
[2018-03-01] MEDS: FUROSEMIDE 40 MG TAB PO SCH (09:27)
--- NOTE | 2018-03-01 11:46 | SOAPPROG ---
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 Not amenable to repair. Replaced with tissue valve. Antithrombotic prophylaxis with Coumadin x 3 mo, target INR 2-3. INR 2.05. Coumadin 2.5mg today. Echo ordered for tomorrow. On Lasix. Moderate AI - Replaced with tissue valve. Antithrombotic prophylaxis as per MV. LVDD - preop LVEDP 20. IVF, low dose levo, and overdrive Apacing early postop for optimized hemodynamics. Moderate volume overload well tolerated. Renal fx remains stable. CAD w preserved LV systolic fx - DIRECTOR OF DEVELOPMENT AND MARKETING of nondominant RCA. On ASA and Lipitor. BB when appropriate. Currently still being Apaced with underlying junctional rhythm in the 60's. Patient drops his BP to 80's with this junctional rhythm. May need PPM evaluation. Acute expected blood loss anemia with thrombocytopenia and mild coagulopathy - Persists with Plt count 59k (56k) and H&H 8.3/23.6. No transfusions required. No evidence active bleeding. Care with VTE prophylaxis while plts depressed. On Iron. HIT negative 02/27. Second HIT pending. Right pleural effusion- Will obtain PA/lat CXR in am to assess. Patient on 1L NC without complaints of SOB. Urinary retention- Resolving, on Flomax. Hypothyroidism- No issues. On Synthroid. Disposition- Pt accepted by [facility]. Plan: Cont Apacing Coumadin 2.5mg today Echo tomorrow Follow up HIT Subjective: Patient reports adequate pain control. "I had 4 soft bowel movement yesterday. " Denies SOB. Objective: Vital Signs Temp Pulse Resp BP Pulse Ox 36.7 C 76 12 100/48 L 93 03/01/18 11:23 03/01/18 11:23 03/01/18 11:23 03/01/18 11:23 03/01/18 11:23 Laboratory Results 03/01/18 06:00 03/01/18 06:00 02/28/18 03/01/18 03/02/18 05:59 05:59 05:59 Intake Total 650 1250 Output Total 1585 1150 Balance -935 100 PT 23.2 SEC (12.0-15.0) H 03/01/18 06:00 INR 2.05 (0.83-1.16) H 03/01/18 06:00 Physical Exam - Physical Exam General Appearance: WD/WN, alert, no apparent distress Neck: supple Respiratory: lungs clear, normal breath sounds, decreased breath sounds (right base. No wheezing, rhochi, rales. ) Cardiac/Chest: regular rate, rhythm, other (No murmurs, rubs, gallops. Sternum stable. Sternotomy c/d/i. ) Abdomen: normal bowel sounds, non-tender, soft Skin: normal color, warm/dry Extremities: other (Warm, 1+ lower extremity pitting edema. ) Neuro/Psych: alert, normal mood/affect, oriented x 3 ICD10 Worksheet Patient Problems: Problems Problem Status Onset Acute blood loss as cause of postoperative anemia Acute Mitral and aortic valve regurgitation Acute S/P aortic valve and mitral valve replacement Acute
[2018-03-01] MEDS ORDERED: WARFARIN SODIUM 2.5 MG TAB PO ONE (16:00)
[2018-03-01] MEDS ORDERED: WARFARIN SODIUM 1 MG TAB PO ONE (16:00)
[2018-03-01] MEDS: ACETAMINOPHEN 325 MG TAB PO PRN (20:18)
[2018-03-02 05:47] LABS: INR 2.44 (0.83-1.16); PROTIME(PATIENT) 26.5 SEC (12.0-15.0)
[2018-03-02] MEDS: HYDROCODONE/APAP 5/325 TAB PO PRN ×2 (06:12→20:51)
[2018-03-02] MEDS: LEVOTHYROXINE 75 MCG TAB PO SCH (06:13)
--- NOTE | 2018-03-02 07:50 | SOAPPROG ---
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 Not amenable to repair. Replaced with tissue valve. Antithrombotic prophylaxis with Coumadin x 3 mo, target INR 2-3. Moderate AI - Replaced with tissue valve. Antithrombotic prophylaxis as per MV. LVDD - preop LVEDP 20. IVF, low dose levo, and overdrive Apacing early postop for optimized hemodynamics. Moderate volume overload well tolerated. Renal fx remains stable. Care with preload. 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 Secondary prevention with ASA and statin. BB as allowed by rhythm. Postoperative junctional rhythm - Persistent. Requiring Apacing to maintain SBP > 100 over the wkend. PPM being considered, however appears to have recovered SR today with rates in 70s. Acute expected blood loss anemia with thrombocytopenia and mild coagulopathy - Stable. No transfusions required. No evidence active bleeding. HIT neg. Postoperative urinary retention - Resolving on Flomax. Plan: Reduce AAI to backup of 60. Baseline postop echo today. Coumadin 1 mg today. Cont lasix 40 mg daily. Wean O2. Dispo - SNF ([facility]) when medically stable. Possibly tomorrow if sinus rhythm held. 03/02/18 07:44 Subjective: Feels fine. No acute concerns. Objective: Vital Signs Temp Pulse Resp BP Pulse Ox 36.7 C 76 16 114/70 98 03/02/18 04:00 03/02/18 04:00 03/02/18 04:00 03/02/18 04:00 03/02/18 04:00 Laboratory Results 03/01/18 06:00 03/01/18 06:00 03/01/18 03/02/18 03/03/18 05:59 05:59 05:59 Intake Total 1250 875 Output Total 1150 1400 350 Balance 100 -525 -350 PT 26.5 SEC (12.0-15.0) H 03/02/18 05:27 INR 2.44 (0.83-1.16) H 03/02/18 05:27 Physical Exam - Physical Exam General Appearance: alert, no apparent distress Respiratory: lungs clear Cardiac/Chest: regular rate, rhythm, other (Sternum grossly stable. Sternotomy and CT sites CDI. A&V wires intact.) Abdomen: non-tender, soft Skin: warm/dry Extremities: swelling (trace pedal) ICD10 Worksheet Patient Problems: Problems Problem Status Onset Acute blood loss as cause of postoperative anemia Acute Mitral and aortic valve regurgitation Acute S/P aortic valve and mitral valve replacement Acute
[2018-03-02] MEDS: PANTOPRAZOLE SODIUM 40 MG TAB PO SCH (08:51)
[2018-03-02] MEDS: POTASSIUM CL 20 MEQ TAB PO SCH (08:51)
[2018-03-02] MEDS: ATORVASTATIN CALCIUM 10 MG TAB PO SCH (08:51)
[2018-03-02] MEDS: FUROSEMIDE 40 MG TAB PO SCH (08:51)
[2018-03-02] MEDS: FERROUS SULFATE 325 MG TAB PO SCH ×2 (08:51→20:52)
[2018-03-02] MEDS: ASPIRIN 81 MG CHEWABLE TAB PO SCH (08:51)
[2018-03-02] MEDS: TAMSULOSIN HCL 0.4 MG CAP PO SCH (08:51)
[2018-03-02] MEDS ORDERED: SENNOSIDES/DOCUSATE SODIUM TAB PO PRN (09:00)
--- NOTE | 2018-03-02 10:21 | ASMTCMCOM ---
CM Note CM Note Notes: 03/02/2018 Case Management Note Reviewed chart. Pt is post op day #5. Faxed updates to [facility]. Case Management d/c poc: Anticipating d/c to [facility] SNF rehab possibly on Friday. Case Management to follow. Date Signed: 03/02/2018 10:20 AM Electronically Signed By:Jana Le RN
--- NOTE | 2018-03-02 11:23 | ECHO ---
[email or web address] [address] Main: [phone] Fax: Transthoracic Echocardiogram Name: FRANCESCA DSOUZA MR#: [id number] Study Date: 03/02/2018 Study Time: 10:26 AM Date of : 1945 Age: 73 year(s) Height: 167.6 cm (66 in.) Weight: 83.46 kg (184 lb.) BSA: 1.93 m2 Gender: Male Examination: Echo Indication: Post op MVR #29 magna/#23 AVR/Atri clip/Eval LV function Image Quality: Contrast: Requested by: Cordelia Melo BP: 104 mmHg/69 mmHg Heart Rate: Rhythm: Indication: Post op MVR #29 magna/#23 AVR/Atri clip/Eval LV function Procedure Staff Rock Wool Insulator: Vianney Worthy [facility] Reading Physician: Pepe Thurman MD Requesting Provider: Conclusions: Normal size left ventricle. The ejection fraction is estimated to be 70-75 %. There is no significant mitral valve regurgitation. A bioprothetic mitral valve is in place. MV max PG is 11mmHG. MV mean PG is 4mmHG.. The aortic valve is a bioprosthesis. AV max PG is 15mmHG. AV mean PG is 9mmHG.. Measurements: Chambers Valvular Assessment AV/MV Valvular Assessment TV/PV Normal Normal Normal Name Value Range Name Value Range Name Value Range Ao Marah (MM): 3.2 cm (2.2 cm-3.7 AV Vmax: 1.83 m/s (1 m/s-1.7 cm) m/s) EF Range: 70-75 % AV maxP mmHg ( - ) AV meanP mmHg ( - ) MV E Vmax: 1.34 m/s ( - ) MV A Vmax: 0.94 m/s ( - ) MV E/A: 1.43 ( - ) MV maxP mmHg ( - ) MV meanP mmHg ( - ) Continued Measurements: Valvular Assessment AV/MV Name Value MV E/E' Septal: 28.00 MV E/E' Lateral: 35.30 Patient: FRANCESCA DSOUZA Study Date: 03/02/2018 Page 1 of 2 10:26 AM MV VTI: 48.20 cm Findings: Left Ventricle: Normal size left ventricle. No LV hypertrophy. Global hypercontractility of the left ventricle. The ejection fraction is estimated to be 70-75 %. Diastolic dysfunction is present. . Right Ventricle: Normal size right ventricle. Right Atrium: The right atrium is normal in size. Mitral Valve: There is no significant mitral valve regurgitation. A bioprothetic mitral valve is in place. MV max PG is 11mmHG. MV mean PG is 4mmHG.. Aortic Valve: The aortic valve is a bioprosthesis. AV max PG is 15mmHG. AV mean PG is 9mmHG.. Tricuspid Valve: The tricuspid valve is normal in appearance and function. Trivial tricuspid valve regurgitation. Pulmonic Valve: Pulmonary valve not well visualized. Aorta: The aorta is normal. Pericardium: No pericardial effusion. Exam Comments: Limited views available for visualization.. (No Signature Object) Patient: FRANCESCA DSOUZA Study Date: 03/02/2018 Page 2 of 2 10:26 AM [id number]
[2018-03-02] MEDS ORDERED: WARFARIN SODIUM 1 MG TAB PO ONE (16:00)
[2018-03-03] MEDS: LEVOTHYROXINE 75 MCG TAB PO SCH (04:57)
[2018-03-03] MEDS: HYDROCODONE/APAP 5/325 TAB PO PRN (04:57)
[2018-03-03 06:19] LABS: INR 2.02 (0.83-1.16); PROTIME(PATIENT) 22.9 SEC (12.0-15.0)
--- NOTE | 2018-03-03 07:44 | SOAPPROG ---
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 Not amenable to repair. Replaced with tissue valve. Antithrombotic prophylaxis with Coumadin x 3 mo, target INR 2-3. Moderate AI - Replaced with tissue valve. Antithrombotic prophylaxis as per MV. LVDD - preop LVEDP 20. IVF, low dose levo, and overdrive Apacing early postop for optimized hemodynamics. Moderate volume overload well tolerated. Renal fx remains stable. Care with preload. CAD w preserved LV systolic fx - [employer] T[employer] FORCE PLANNERS of nondominant RCA. Secondary prevention with ASA and statin. BB as allowed by rhythm. Postoperative junctional rhythm - Recovered. Plan to cute pacing wire this AM. Acute expected blood loss anemia with thrombocytopenia and mild coagulopathy - Stable. No transfusions required. No evidence active bleeding. HIT neg. Postoperative urinary retention - Resolving on Flomax. Subjective: Feels well. Denies pain/SOB. Objective: Vital Signs Temp Pulse Resp BP Pulse Ox 36.6 C 78 16 107/62 94 03/03/18 04:00 03/03/18 04:00 03/03/18 04:00 03/03/18 04:00 03/03/18 04:00 Laboratory Results 03/03/18 05:00 03/01/18 06:00 03/02/18 03/03/18 03/04/18 05:59 05:59 05:59 Intake Total 875 940 Output Total 1400 1725 Balance -525 -785 PT 22.9 SEC (12.0-15.0) H 03/03/18 05:00 INR 2.02 (0.83-1.16) H 03/03/18 05:00 Physical Exam - Physical Exam General Appearance: WD/WN, alert, no apparent distress EENT: No scleral icterus (R), No scleral icterus (L) Neck: normal inspection Respiratory: No respiratory distress Cardiac/Chest: regular rate, rhythm Abdomen: non-tender, soft, No distended Skin: normal color, warm/dry Extremities: No pedal edema Neuro/Psych: no motor/sensory deficits, alert, normal mood/affect, oriented x 3 ICD10 Worksheet Patient Problems: Problems Problem Status Onset Acute blood loss as cause of postoperative anemia Acute Mitral and aortic valve regurgitation Acute S/P aortic valve and mitral valve replacement Acute
[2018-03-03] MEDS: ASPIRIN 81 MG CHEWABLE TAB PO SCH (09:25)
[2018-03-03] MEDS: PANTOPRAZOLE SODIUM 40 MG TAB PO SCH (09:25)
[2018-03-03] MEDS: FERROUS SULFATE 325 MG TAB PO SCH (09:25)
[2018-03-03] MEDS: ATORVASTATIN CALCIUM 10 MG TAB PO SCH (09:25)
[2018-03-03] MEDS: FUROSEMIDE 40 MG TAB PO SCH (09:25)
[2018-03-03] MEDS: TAMSULOSIN HCL 0.4 MG CAP PO SCH (09:25)
[2018-03-03] MEDS: POTASSIUM CL 20 MEQ TAB PO SCH (09:26)
--- NOTE | 2018-03-03 11:02 | PDIAF ---
- Diagnosis Diagnosis: MVR/AVR Code Status: Full Code - Medication Management Discharge Medications: Medications to Continue on Transfer Levothyroxine [Synthroid 75 mcg (*)] 75 mcg PO DAILY06 09/12/15 [Last Taken 12/17] Atorvastatin Calcium [Lipitor 10 mg (*)] 10 mg PO HS 02/02/18 [Last Taken ] Albuterol [Ventolin Hfa Inhaler] 2 puffs IH Q4 PRN 02/16/18 [Last Taken Unknown] Acetaminophen [Tylenol 325mg (*)] 325 - 650 mg PO Q4HRS PRN tab 03/03/18 [Last Taken Unknown] Aspirin [Aspirin 81mg (*)] 81 mg PO DAILY tab.chew 03/03/18 [Last Taken Unknown ] Ferrous Sulfate [Ferrous Sulf 325 MG (*)] 325 mg PO BID tab 03/03/18 [Last Taken Unknown] Furosemide [Lasix 40 MG (*)] 40 mg PO DAILY tab 03/03/18 [Last Taken Unknown] Hydrocodone/APAP 5/325 [[place] 5/325 (*)] 1 - 2 tab PO Q4HRS PRN tab 03/03/18 [ Last Taken Unknown] Potassium Cl [Klor-Con 20 meq (*)] 20 meq PO DAILY tab 03/03/18 [Last Taken Unknown] Tamsulosin HCl [Flomax 0.4 MG (*)] 0.4 mg PO DAILY cap 03/03/18 [Last Taken Unknown] Warfarin Sodium 2.5 mg PO DAILY #30 tablet 03/03/18 [Last Taken Unknown] Discharge Medications: Refer to the Discharge Home Medication list for PRN reason. PICC Care - Routine: N/A - Orders Services needed: Registered Nurse, Certified Superintendent Renting Managing, Master Sausage Maker , Physical Therapy, Occupational Therapy Oxygen: 2 liters/min via nasal cannula Diet Recommendation: cardiac -low fat low salt, fluid restriction (use comment for amount) (2 liters per day) Weigh Patient: daily [place]: No Additional Instructions: Discharge Instructions: Call [facility] cardiac rehab to enroll in phase 2 classes if not already arranged. Sternal precautions x 4 weeks. Avoid lifting > 10lbs with an outstretched arm. Avoid push/pull activities. No driving until cleared by surgery. Elevate low legs at rest. Avoid prolonged standing or dangling. Cleanse wounds once daily with soap and water. Avoid immersion (pool, hot tub, bath) until scabs off. Ok to leave all wounds open to air. Avoid creams or ointments until scabs fall off. Log daily vital signs once home: weight, heart rate, blood pressure, and pulse oximetry if on oxygen. Call [facility] for overnight weight gain > 2lbs, weekly gain > 5lbs or worsening leg swelling. Call [facility] for resting heart rate > 140 OR for systolic blood pressure consistently < 90 or > 140. Target oxygen saturation > 89%. Ok to use [id number] medications for bowel function. Chest x-ray Instructions: Please obtain a chest xray prior to surgical appointment. Chest x-rays dont require an appointment. Come to the Emergency Room entrance at the [facility] location. Sign in at the computer kiosk in the entryway. You will be given a number and may sit in the waiting area until called. You will be registered and directed to the Imaging desk on the 1st floor. This process can take up to an hour. Make sure you allow enough time before your appointment to have your x-ray taken. - Labs/Radiology PT/INR Date: 03/04/18 (INR goal 2-3. Please dose Coumadin accordingly and mesure INR until levels are stable. ) Imaging Orders: CXR on 03/10 at [facility] prior to surgical follow-up - Follow Up Care Current Providers and Referrals: Stefan Cervantes DO [Doctor of Osteopathy] - 03/10/18 11:30 am Westley Phelan MD [Primary Care Provider] -
--- NOTE | 2018-03-03 11:05 | PDDCSUM ---
Discharge Summary Discharge Summary: ADMISSION DATE: 02/25/18 DISCHARGE DATE: 03/03/18 DISCHARGE DIAGNOSES 1. Severe mitral insufficiency 2. Moderate aortic insufficiency 3. Acute blood loss anemia 4. Thrombocytopenia 5. Postoperative junctional rhythm PROCEDURES 02/25/18, Stefan Cervantes: 1. Mitral valve replacement with #29 Magna bioprosthesis 2. Aortic valve replacement with #23 Inspiris Resilia bioprosthesis 3. AtriClip left atrial appendage HOSPITAL COURSE BY PROBLEM LIST 1. Severe MR - stable s/p MV replacement. Thromboprophylaxis with Coumadin, INR goal 2-3, for 3 months and aspirin for life. 2. Moderate aortic insufficiency - stable s/p AV replacement. Thromboprophylaxis as per MVR. 3. Acute blood loss anemia - no need for transfusions. Iron prescribed on discharge. 4. Thrombocytopenia - HIT negative. Platelets with rebound. 5. Postoperative junctional rhythm - resolution during hospital course. Beta- blockers avoided. CONDITION Good DISPOSITION Home, self-care ACTIVITY Pt was instructed on sternal precautions, activity limitations, and which problems to call [facility] with. Please see Discharge Plan in chart for specifics. DISCHARGE MEDICATIONS Continue: Levothyroxine [Synthroid 75 mcg (*)] 75 mcg PO DAILY06 09/12/15 [Last Taken 12/17] Atorvastatin Calcium [Lipitor 10 mg (*)] 10 mg PO HS 02/02/18 [Last Taken ] Albuterol [Ventolin Hfa Inhaler] 2 puffs IH Q4 PRN 02/16/18 [Last Taken Unknown] New: Acetaminophen [Tylenol 325mg (*)] 325 - 650 mg PO Q4HRS PRN tab 03/03/18 [Last Taken Unknown] Aspirin [Aspirin 81mg (*)] 81 mg PO DAILY tab.chew 03/03/18 [Last Taken Unknown ] Ferrous Sulfate [Ferrous Sulf 325 MG (*)] 325 mg PO BID tab 03/03/18 [Last Taken Unknown] Furosemide [Lasix 40 MG (*)] 40 mg PO DAILY tab 03/03/18 [Last Taken Unknown] Hydrocodone/APAP 5/325 [[place] 5/325 (*)] 1 - 2 tab PO Q4HRS PRN tab 03/03/18 [ Last Taken Unknown] Potassium Cl [Klor-Con 20 meq (*)] 20 meq PO DAILY tab 03/03/18 [Last Taken Unknown] Tamsulosin HCl [Flomax 0.4 MG (*)] 0.4 mg PO DAILY cap 03/03/18 [Last Taken Unknown] Warfarin Sodium 2.5 mg PO DAILY #30 tablet 03/03/18 [Last Taken Unknown] PENDING STUDIES/LABS 1. CXR - prior to surgical follow-up 2 INR - 7/4 at [facility] FOLLOW-UP 1. Stefan Cervantes, 03/10/18, 11:30 AM 2. Pepe Carrillo, to be arranged at surgical follow-up
--- NOTE | 2018-03-03 15:10 | ASMTCMCOM ---
CM Note CM Note Notes: Pt accepted at [facility]. He will be picked up at 5:00PM. They will bring oxygen. D/C Plan: [facility] Date Signed: 03/03/2018 03:09 PM Electronically Signed By:Barbie Azevedo
[2018-03-03 15:14] VITALS: BP 117/61
[2018-03-03] MEDS ORDERED: WARFARIN SODIUM 2.5 MG TAB PO ONE (16:00)
--- NOTE | 2018-03-05 16:24 | ASDISCHSUM ---
Discharge Information Plan Status:SNF Medically Cleared to Leave: Discharge Date:03/03/2018 05:30 PM CM D/C Disposition:[facility] Facility ADT D/C Disposition:Correction Facility Projected Discharge Date:03/02/2018 11:00 AM Transportation at D/C:ALS/BLS Discharge Delay Reason: Follow-Up Date:03/02/2018 11:00 AM Discharge Slot: Final Diagnosis: Placement Information Referral Type:*Jail/SNF Referral ID:[id number] Provider Name:Melanie Cervantes Address 1:[address] Phone Number: Address 2: Fax Number: [facility]:[place] Selection Factors: State:[place] Patient Contact Information Contact Name:SURESH Relationship: Address:[address] City:[place] Alternate Phone: State/Zip Code:[place] [address] Email: Financial Information Financial Class:Medicare Advantage Plans Primary Plan Desc:[facility] [employer] Primary Plan Number:[id number] Secondary Plan Desc: Secondary Plan Number: Assessment Information LACE LACE Acuity / Level of Answers: Yes Care: Did the patient have an inpatient admission? Comorbidities - select Answers: Chronic pulmonary disease all that apply Congestive heart failure Opioid dependence / Chronic pain Other Notes: HTN; Hx of seizures # of Emergency department Answers: 0 visits in the last 6 months Score: 12 Date Signed: 02/26/2018 02:54 PM Electronically Signed By:Flor Nava [facility] CM Progress Note CM Note CM Note Notes: Patient is POD #1 AVR/MVR and doing well. Initial PT eval recommends SNF. I spoke with patient and he is amenable to SNF. He lives alone. He requested a referral to [facility], which I sent. Case Management will follow. Date Signed: 02/26/2018 11:23 AM Electronically Signed By:Lesly Reza RN [facility] CM Progress Note CM Note CM Note Notes: Chart reviewed. Patient transferred from ICU s/p MVR and AVR. Per PT initial evaluation recommending SNF. Still in early postoperative period. CM to follow. NTBD. Plan: TBD Date Signed: 02/27/2018 04:21 PM Electronically Signed By:Stephanie Salinas RN [facility] CM Progress Note CM Note CM Note Notes: Pt has been acceptd by [facility]. DC unknown. CM to follow. Date Signed: 02/28/2018 03:03 PM Electronically Signed By:Angi Bettencourt LCSW [facility] CM Progress Note CM Note CM Note Notes: 03/02/2018 Case Management Note Reviewed chart. Pt is post op day #5. Faxed updates to [facility]. Case Management d/c poc: Anticipating d/c to [facility] SNF rehab possibly on Friday. Case Management to follow. Date Signed: 03/02/2018 10:20 AM Electronically Signed By:Jana Le RN [facility] CM Progress Note CM Note CM Note Notes: Pt accepted at [facility]. He will be picked up at 5:00PM. They will bring oxygen. D/C Plan: [facility] Date Signed: 03/03/2018 03:09 PM Electronically Signed By:Barbie Azevedo Intervention Information Intervention Type:*IM-Signed Date of Service:03/03/2018 11:26 AM Patient Type:Inpatient Staff Member:Flor Nava Hours: Discipline: Severity: Comment:
--- NOTE | 2018-03-23 18:39 | GPROG ---
[f rep st] PROGRESS NOTE POSTANESTHESIA CARE NOTE DATE OF ANESTHETIC: 02/25/2018. This patient underwent an MVR, AVR with Dr. Cervantes. The patient was taken to the intensive care unit in stable condition. The patient's pain and nausea were adequately controlled. There were no apparen t complications from this anesthetic. /[id number]/MODL
== END 2018-03-03 17:30 | DRG 220 ==
LOC: F2N 06:12 → F2W 02-27 14:50
PROVIDERS: ADMIT Thoracic Surgery (Cardiothoracic Vascular Surgery); ATTEND Thoracic Surgery (Cardiothoracic Vascular Surgery)
PROC: 5A1221Z Performance of Cardiac Output, Continuous (ICD-10-PCS; principal; 2018-02-25 10:00)
PROC: 02RG08Z Replacement of Mitral Valve with Zooplastic Tissue, Open Approach (ICD-10-PCS; principal; 2018-02-25 10:00)
PROC: 02RF08Z Replacement of Aortic Valve with Zooplastic Tissue, Open Approach (ICD-10-PCS; principal; 2018-02-25 10:00)
PROC: 02L70CK Occlusion of Left Atrial Appendage with Extraluminal Device, Open Approach (ICD-10-PCS; principal; 2018-02-25 10:00)
PROC: 30233N1 Transfusion of Nonautologous Red Blood Cells into Peripheral Vein, Percutaneous Approach (ICD-10-PCS; 2018-02-26)
DX: I08.0 Rheumatic disorders of both mitral and aortic valves (principal); D62 Acute posthemorrhagic anemia; I49.2 Junctional premature depolarization; R33.9 Retention of urine, unspecified; D69.6 Thrombocytopenia, unspecified; I25.10 Atherosclerotic heart disease of native coronary artery without angina pectoris; E03.9 Hypothyroidism, unspecified
CPT/HCPCS: 82435-PO; 82565-PO; 82947-PO; 84132-PO; 84295-PO; 84520-PO; 85014-PO; 86022-90; 97116-GP; 97161-GP; 97165-GO; 97530-GO; 97530-GP; 97535-GO; G8978-GP-CK; G8979-GP-CI; G8987-GO-CK; G8988-GO-CI; J0153; J0282; J0690; J1265; J1644; J1815; J1885; J1940; J2001; J2150; J2250; J2260; J2270; J2370; J2405; J2704; J2720; J2765; J2930; J3010; J3475; J3480; J7060; P9016; P9041

== ENCOUNTER → 2018-03-10 | Outpatient (CLI) | payer OTHER | LOC: FIMAGING 09:58 | PROVIDERS: ATTEND Thoracic Surgery (Cardiothoracic Vascular Surgery) | DX: J98.11 Atelectasis (principal); J90 Pleural effusion, not elsewhere classified; I27.20 Pulmonary hypertension, unspecified ==

== ENCOUNTER → 2018-06-04 | Outpatient (CLI) | payer OTHER | LOC: CIMAGING 14:41 | PROVIDERS: ATTEND Internal Medicine | DX: T85.698A Other mechanical complication of other specified internal prosthetic devices, implants and grafts, initial encounter (principal); Z96.89 Presence of other specified functional implants | CPT/HCPCS: 70250-PO ==

== ENCOUNTER 2018-06-19 07:24 | Day surgery (SDC) | payer OTHER ==
[2018-06-19] MEDS ORDERED: ACETAMINOPHEN 500 MG TAB PO ONE (07:38)
[2018-06-19] MEDS ORDERED: LR 1,000 ML IV ONE (07:39)
[2018-06-19] MEDS ORDERED: LIDOCAINE 1% 2 ML INJ ID PRN (07:39)
[2018-06-19] MEDS: ceFAZolin 2 GM/DEXTROSE 100 ML IV ONE ×2 (08:00→09:24)
--- NOTE | 2018-06-19 09:21 | PDHPUP ---
History & Physical Update H&P update statement: This history and physical update is based on an assessment of the patient which was completed after admission or registration (within 24 hours), but prior to the surgery/procedure. H&P update: H&P reviewed & patient examined, no change in patient's condition since H&P completed (Consents signed and site marked. Will plan for hardware removal under local anesthestic since patient did not bring a ride home. He understands the risks and is willing to proceed.)
[2018-06-19] MEDS ORDERED: LIDO/EPI 1% **for epidural** 30 ML SDV ONE (09:37)
[2018-06-19] MEDS ORDERED: BACITRACIN ZINC 14.2 GM OINTTUBE TP ONE (09:58)
[2018-06-19 10:08] VITALS: BP 122/88
--- NOTE | 2018-06-19 10:18 | PDDCSUM ---
Discharge Summary Discharge Summary: Patient went to the OR for a cranial with exploration and removal under local anesthetic. No complications and he was discharged home in good condition with excellent pain control. Neurologically doing well at the time of evaluation and discharge in the post-op recovery area. Instructions: 1. Call the office [phone] for follow-up appointment in 10-14 days for suture removal. 2. Keep incision dry until 06/22/2018 and then okay to get incision wet/shower. Change dressing on 06/20/2018 and keep incision clean with daily dressing changes until seen in clinic. Do not soak incision until seen in clinic and incision evaluated. 3. Call the office if you develop any chills, fevers above 100.4 F or new redness or discharge around the incision ([phone]). 4. Activity as tolerated but try to avoid any heavy lifting over 10 pounds until evaluated in clinic. 5. Pain control: start ibuprofen or tylenol as needed. Oxycodone 5 mg every 6 hours as needed by mouth for increased pain.
--- NOTE | 2018-06-19 11:23 | GOP ---
DATE OF OPERATION: 06/19/2018 SURGEON: Urbano Villanueva MD FINANCIAL PLANNER: None. ANESTHESIA: Local anesthetic. PREOPERATIVE DIAGNOSIS: Prominent and exposed cranial hardware. POSTOPERATIVE DIAGNOSIS: Prominent and exposed cranial hardware. PROCEDURE PERFORMED: 1. Exploration and removal of right cranial cerclage wire. 2. Revision of cranial scalp incision, 1 cm. FINDINGS: exposed cranial wire and dessicated tissue ESTIMATED BLOOD LOSS: 5 mL. INDICATIONS: The patient is a very pleasant gentleman who has undergone prior cervical surgery by myself. He underwent a craniotomy approximately 30 years ago following a trauma. He recently developed a cerclage wire protruding from the frontal aspect of the scalp with some erythema and constant irritation. We evaluated the wire and decided it needed to be explored and removed. He presents now for that surgical intervention. DESCRIPTION OF PROCEDURE: The patient was brought to the operating theater and was moved to the operating table and placed in the supine position sitting. The wire was identified and an elliptical incision was then marked out approximately 1 cm length. This area was then prepped and draped in usual sterile surgical fashion. A time-out was completed per protocol and the patient received antibiotics within 1 hour of incision. The incision was infiltrated with Marcaine with epinephrine. The incision was then taken down with the scalpel blade circumferentially around the exposed wire. The wire was then clipped and removed after exploration. We then irrigated the wound. The wound was then revised and closed with vertical mattress nylon sutures. The patient's scalp was noted to be quite tight with difficulty closing it secondary to his prior craniotomy flap. The wound was then dressed sterilely. He was taken to the recovery room in stable condition. There were no complications. COMPLICATIONS: None. /[id number]/MODL MTDD
== END 2018-06-19 11:00 | disposition home or self-care (01) ==
LOC: FSGY 07:24
PROVIDERS: ATTEND Neurological Surgery
PROC: 0NP004Z Removal of Internal Fixation Device from Skull, Open Approach (ICD-10-PCS; principal; 2018-06-19 11:00)
DX: T85.698A Other mechanical complication of other specified internal prosthetic devices, implants and grafts, initial encounter (principal); S02.0XXS Fracture of vault of skull, sequela; Z79.01 Long term (current) use of anticoagulants
CPT/HCPCS: J0690